=== PATIENT | female | born 1990 | race African-American/Black ===

== ENCOUNTER 2017-02-10 04:08 | Emergency (ER) | payer MEDICAID ==
[~2017-02-10 04:08] MED LIST: CLIN1CAP6 PO
[2017-02-10 04:09] VITALS: BP 157/94; PULSE 71; RESP 16; TEMP 97.6; O2SAT 100
[2017-02-10] MEDS ORDERED: SODIUM CHLOR 0.9% 1000 ML INJ 1,000 ML IV ONE ×2 (04:45→06:15)
[2017-02-10] MEDS ORDERED: ONDANSETRON HCL 4 MG/2 ML VIAL IV ONE (04:45)
[2017-02-10 05:22] LABS: AUTOMATED NEUTROPHIL # 3.3 TH/MM3 (1.8-7.7); BASOPHIL % 0.5 % (0.0-2.0); EOSINOPHIL # 0.2 TH/MM3 (0-0.4); EOSINOPHIL % 2.8 % (0.0-4.0); HEMATOCRIT 49.5 % (35.0-46.0); HEMO FLAGS DIFF FINAL; LYMPH % 42.4 % (9.0-44.0); LYMPHOCYTE # 2.8 TH/MM3 (1.0-4.8); MEAN CELL VOLUME 92.4 FL (80.0-100.0); MEAN CORPUSCULAR HEMOGLOBIN 30.7 PG (27.0-34.0); MEAN CORPUSCULAR HGB CONC 33.2 % (32.0-36.0); MONO % 4.5 % (0.0-8.0); NEUT % 49.8 % (16.0-70.0); PLATELET COUNT 254 TH/MM3 (150-450); RED BLOOD COUNT 5.36 MIL/MM3 (4.00-5.30); RED CELL DISTRIBUTION WIDTH 14.4 % (11.6-17.2); WHITE BLOOD COUNT 6.7 TH/MM3 (4.0-11.0)
--- NOTE | 2017-02-10 05:23 | PD ---
HPI Chief Complaint: GI Complaint Time Seen by Provider: 04:34 Travel History International Travel<30 days: No Contact w/Intl Traveler<30days: No Traveled to known affect area: No History of Present Illness HPI The patient is a 26 year old female who presents to the [facility] emergency department with a history of yesterday beginning to have a headache over bilateral frontal sinuses that is gradually gotten worse with time. The patient reports that the headache is a pressure sensation. She reports it has been constant. She reports that she is now experiencing nausea and vomiting. She reports that she's had nausea and vomiting 4 prior to arrival. She denies having any diarrhea. She reports that she has had problems with headaches in the past, however they were many years ago. She reports that she has had worse headaches previously. She denies any thunderclap quality to this headache. She denies having any neck pain, fevers, cough, congestion, rhinorrhea. Otherwise on review of systems, she denies any chest pain, shortness of breath, abdominal pain, urinary symptoms, or neurologic symptoms. LMP: 1 week ago her last menstrual cycle ended PFSH Past Medical History Narrative Medical The patient's past medical history is significant for headaches. Hx Anticoagulant Therapy: No Cardiovascular Problems: No Chemotherapy: No Cerebrovascular Accident: No Diabetes: No Diminished Hearing: No Headaches: Yes Respiratory: No ?: Not : 4 Para: 4 Miscarriage: 0 : 0 Past Surgical History Narrative Surgical The patient's past surgical history is reportedly none. Hysterectomy: No Social History Alcohol Use: No Tobacco Use: No Substance Use: No Allergies-Medications (Allergen,Severity, Reaction): Coded Allergies: Keflex (Verified Allergy, Severe, Hives, 02/10/17) Reported Meds & Prescriptions Reported Meds & Active Scripts Active No Active Prescriptions or Reported Medications Review of Systems Except as stated in HPI: all other systems reviewed are Neg General / Constitutional: No: Fever, Chills Eyes: No: Visual changes HENT: Positive: Headaches, No: Sore Throat, Rhinorrhea, Neck Stiffness, Neck Pain Cardiovascular: No: Chest Pain or Discomfort Respiratory: No: Shortness of Breath Gastrointestinal: Positive: Nausea, Vomiting, No: Abdominal Pain Genitourinary: No: Dysuria Musculoskeletal: No: Pain Skin: No Rash Neurologic: Positive: Headache, No: Weakness, Focal Abnormalities, Change in Mentation, Slurred Speech, Sensory Disturbance Psychiatric: No: Depression Endocrine: No: Polydipsia Hematologic/Lymphatic: No: Easy Bruising Physical Exam Narrative General: The patient is a well-developed well-nourished female in no acute distress. Head and Neck exam: Head is normocephalic atraumatic. Eyes: EOMI, pupils are equal round and reactive to light. Nose: Midline septum with pink mucous membranes Mouth: Dentition unremarkable. Moist mucus membranes. Posterior oropharynx is not erythematous. No tonsillar hypertrophy. Uvula midline. Airway patent. Neck: No palpable lymphadenopathy. No nuchal rigidity. No thyromegaly. Cardiovascular: Regular rate and rhythm without murmurs, gallops, or rubs. No pulse deficit to the extremities. Lungs: Clear to auscultation bilaterally. No wheezes, rhonchi, or rales. Abdomen: Soft, without tenderness to palpation in all 4 quadrants of the abdomen. No guarding, rebound, or rigidity. Normal bowel sounds are audible. No tenderness on palpation of McBurney's point. Negative Bran's sign. Extremities: No clubbing, cyanosis, or edema. 2+ pulses in all 4 extremities. No calf tenderness on palpation. Back: No spinous process tenderness to palpation. No costovertebral angle tenderness to palpation. Neurologic Exam: Cranial nerves 2-12 were intact on exam. Strength is 5/5 in all 4 extremities. No sensory deficits noted. Skin Exam: No rash noted. Intact skin that is warm and dry. Data Data Last Documented VS Vital Signs Date Time Temp Pulse Resp B/P Pulse Ox O2 Delivery O2 Flow Rate FiO2 02/10/17 04:31 16 02/10/17 04:09 97.6 71 157/94 100 Room Air Orders Complete Blood Count With Diff (02/10/17 04:43) Comprehensive Metabolic Panel (02/10/17 04:43) Lipase (02/10/17 04:43) Urinalysis - C+S If Indicated (02/10/17 04:43) Ct Brain W/O Iv Contrast(Rout) (02/10/17 04:43) Iv Access Insert/Monitor (02/10/17 04:43) Ecg Monitoring (02/10/17 04:43) Oximetry (02/10/17 04:43) Ed Urine Pregnancytest Poc (02/10/17 04:43) Sodium Chlor 0.9% 1000 Ml Inj (Ns 1000 M (02/10/17 04:45) Ondansetron Inj (Zofran Inj) (02/10/17 04:45) Ketorolac Inj (Toradol Inj) (02/10/17 06:15) Sodium Chlor 0.9% 1000 Ml Inj (Ns 1000 M (02/10/17 06:15) Labs Laboratory Tests Test 02/10/17 02/10/17 05:10 05:20 White Blood Count 6.7 TH/MM3 Red Blood Count 5.36 MIL/MM3 Hemoglobin 16.4 GM/DL Hematocrit 49.5 % Mean Corpuscular Volume 92.4 FL Mean Corpuscular Hemoglobin 30.7 PG Mean Corpuscular Hemoglobin 33.2 % Concent Red Cell Distribution Width 14.4 % Platelet Count 254 TH/MM3 Mean Platelet Volume 8.9 FL Neutrophils (%) (Auto) 49.8 % Lymphocytes (%) (Auto) 42.4 % Monocytes (%) (Auto) 4.5 % Eosinophils (%) (Auto) 2.8 % Basophils (%) (Auto) 0.5 % Neutrophils # (Auto) 3.3 TH/MM3 Lymphocytes # (Auto) 2.8 TH/MM3 Monocytes # (Auto) 0.3 TH/MM3 Eosinophils # (Auto) 0.2 TH/MM3 Basophils # (Auto) 0.0 TH/MM3 CBC Comment DIFF FINAL Differential Comment Sodium Level 139 MEQ/L Potassium Level 3.8 MEQ/L Chloride Level 105 MEQ/L Carbon Dioxide Level 26.8 MEQ/L Anion Gap 7 MEQ/L Blood Urea Nitrogen 7 MG/DL Creatinine 0.76 MG/DL Estimat Glomerular Filtration 110 ML/MIN Rate Random Glucose 76 MG/DL Calcium Level 9.1 MG/DL Total Bilirubin 0.4 MG/DL Aspartate Amino Transf 20 U/L (AST/SGOT) Alanine Aminotransferase 30 U/L (ALT/SGPT) Alkaline Phosphatase 71 U/L Total Protein 8.6 GM/DL Albumin 4.6 GM/DL Lipase 230 U/L Urine Color YELLOW Urine Turbidity CLEAR Urine pH 6.5 Urine Specific [place] 1.015 Urine Protein NEG mg/dL Urine Glucose (UA) NEG mg/dL Urine Ketones NEG mg/dL Urine Occult Blood NEG Urine Nitrite NEG Urine Bilirubin NEG Urine Urobilinogen LESS THAN 2.0 MG/DL Urine Leukocyte Esterase NEG Urine RBC 4 /hpf Urine WBC 1 /hpf Urine Squamous Epithelial 1 /hpf Cells Urine Mucus FEW /lpf Microscopic Urinalysis Comment CULT NOT INDICATED MDM Medical Decision Making Medical Screen Exam Complete: Yes Emergency Medical Condition: Yes Medical Record Reviewed: Yes Interpretation(s) Last Impressions Head CT 02/10/17 0443 Signed Impressions: Service Date/Time: Friday, February 10, 2017 05:42 - CONCLUSION: Normal examination for a patient of this age. No significant change has occurred. Abdirizak Robles MD Differential Diagnosis Acute sinusitis, versus tension headache, versus migraine headache, versus allergy related headache, versus cluster headache Narrative Course During the course of the patients emergency department visit, the patients history, examination, and differential diagnosis were reviewed with the patient. The patient had IV access obtained and blood work sent for analysis. The patient had a CT scan of the brain ordered. The patient was initially provided normal saline 1 L IV fluid bolus, Zofran 4 mg IV. The patients laboratory studies were reviewed and remarkable for a white count of 6.7, hemoglobin 16.4, platelets 254 with a normal differential. CMP is remarkable for a total protein of 8.6, lipase 230. Urinalysis shows 4 rbc's, no other acute abnormality. Radiology studies were reviewed and remarkable for a CT scan of the brain that shows no acute abnormality. The patient was provided Toradol 15 mg IV for pain. The patient was given a second liter of normal saline IV fluids. The patient is resting comfortably and feels better, is alert and in no distress. The patients results and examination findings were discussed with the patient. The repeat examination is unremarkable and benign. The history, exam, diagnostic testing, and current condition do not suggest any significant pathology to warrant further testing, continued ED treatment, admission, or surgical evaluation at this point. The vital signs have been stable. The patient does not have uncontrollable pain, intractable vomiting, or other significant symptoms. The patient's condition is stable and appropriate for discharge. The patient will pursue further outpatient evaluation with a primary care physician or other designated or consulting physician as indicated in the discharge instructions. The patient expressed understanding and was agreeable with this plan. Diagnosis Primary Impression: Headache Qualified Code: R51 - Acute nonintractable headache, unspecified headache type Referrals: Primary Care Physician 2 days Patient Instructions: Acute Headache (ED), General Instructions Med/Other Pt SpecificInfo: Prescription(s) given Scripts Mvmewmjoli-Mzkmtmkmhbvpb-Pcvegeaq (Fioricet)50-300-40 Mg Cap1 Cap PO Q6HR PRN ( headache) #6 CAP Ref 0 Prov:Amy Bernabe MD 02/10/17 Ondansetron Odt (Zofran Odt)4 Mg Tab4 Mg SL Q6HR PRN (Nausea/Vomiting) #7 TAB Ref 0 Prov:Amy Bernabe MD 02/10/17 Disposition: 01 DISCHARGE HOME Condition: Stable Amy Bernabe MD Feb 10, 2017 05:23
[2017-02-10 05:37] LABS: ALT (GPT) 30 U/L (10-53); ANION GAP 7 MEQ/L (5-15); AST (GOT) 20 U/L (15-37); BICARBONATE 26.8 MEQ/L (21.0-32.0); BLOOD UREA NITROGEN 7 MG/DL (7-18); CHLORIDE 105 MEQ/L (98-107); GLOMERULAR FILTRATION RATE 110 ML/MIN (>89); POTASSIUM 3.8 MEQ/L (3.5-5.1); SODIUM (NA) 139 MEQ/L (136-145)
[2017-02-10 05:39] LABS: BLOOD, URINE NEG (NEG); COMMENT (UR) CULT NOT INDICATED; CULTURE IF INDICATED CULT NOT INDICATED; GLUCOSE,URINE NEG (NEG); KETONE, URINE NEG (NEG); MUCUS URINE FEW /lpf (OCC); NITRITE,URINE NEG (NEG); PH, URINE 6.5 (5.0-8.5); SQUAMOUS EPITHELIAL CELL URINE 1 /hpf (0-5); URINE COLOR YELLOW (YELLW/STRAW)
[2017-02-10 05:39] LABS: ALKALINE PHOSPHATASE 71 U/L (45-117); TOTAL BILIRUBIN ADULT 0.4 MG/DL (0.2-1.0)
--- NOTE | 2017-02-10 05:52 | RADRPT ---
EXAM DATE/TIME: 02/10/2017 05:42 [place] COMPARISON: CT BRAIN W/O CONTRAST, September 10, 2014, 4:12. INDICATIONS : Cephalgia with vomiting. RADIATION DOSE: 37.30 CTDIvol (mGy) MEDICAL HISTORY : None SURGICAL HISTORY : None. ENCOUNTER: Initial ACUITY: 1 day PAIN SCALE: 6/10 LOCATION: cranial TECHNIQUE: Multiple contiguous axial images were obtained of the head. Using automated exposure control and adj ustment of the mA and/or kV according to patient size, radiation dose was kept as low as reasonably a chievable to obtain optimal diagnostic quality images. DICOM format image data is available electro nically for review and comparison. FINDINGS: CEREBRUM: The ventricles are normal for age. No evidence of midline shift, mass lesion, hemorrhage or acute in farction. No extra-axial fluid collections are seen. POSTERIOR FOSSA: The cerebellum and brainstem are intact. The 4th ventricle is midline. The cerebellopontine angle i s unremarkable. EXTRACRANIAL: The visualized portion of the orbits is intact. SKULL: The calvaria is intact. No evidence of skull fracture. CONCLUSION: Normal examination for a patient of this age. No significant change has occurred. Abdirizak Robles MD on February 10, 2017 at 5:50 Board Certified Radiologist. This report was verified electronically.
[2017-02-10] MEDS ORDERED: KETOROLAC TROMETHAMINE 30 MG/ML (IVP) VIAL IV PUSH ONE (06:15)
[2017-02-10] MEDS ORDERED: ZOFR4TAB3 SL (06:28)
[2017-02-10] MEDS ORDERED: BUTA1CAP PO (06:28)
[2017-02-10 07:17] VITALS: BP 136/94; TEMP 97.9
== END 2017-02-10 07:45 | disposition home or self-care (01) ==
LOC: NEPC 04:08
DX: R51 Headache (principal); R11.2 Nausea with vomiting, unspecified
CPT/HCPCS: 70450; 80053; 81001; 83690; 84703; 85025; 96374; 96375; 99285; J1885; J2405; J7030

== ENCOUNTER 2017-02-24 15:49 | Emergency (ER) | payer MEDICAID ==
[~2017-02-24] VITALS: Ht 175.3 cm; Wt 86.0 kg
[~2017-02-24 15:49] MED LIST changes: +BUTA1CAP PO; -CLIN1CAP6 PO; +ZOFR4TAB3 SL
[2017-02-24 15:50] VITALS: BP 175/87; PULSE 59; RESP 16; TEMP 98.6; O2SAT 100
[2017-02-24 17:07] LABS: BACTERIA, URINE RARE /hpf; BLOOD, URINE MOD (NEG); COMMENT (UR) CULT NOT INDICATED; CULTURE IF INDICATED CULT NOT INDICATED; GLUCOSE,URINE NEG (NEG); KETONE, URINE NEG (NEG); MUCUS URINE FEW /lpf (OCC); NITRITE,URINE NEG (NEG); PH, URINE 6.5 (5.0-8.5); SQUAMOUS EPITHELIAL CELL URINE 8 /hpf (0-5); URINE COLOR YELLOW (YELLW/STRAW)
[2017-02-25] MEDS ORDERED: METR500T10 PO (11:24)
== END 2017-02-24 18:16 | disposition left against medical advice (07) ==
LOC: NED 15:49
DX: N94.9 Unspecified condition associated with female genital organs and menstrual cycle (principal)
CPT/HCPCS: 81001; 84703; 99281

== ENCOUNTER 2017-02-25 07:56 | Emergency (ER) | payer MEDICAID ==
[2017-02-25 07:58] VITALS: BP 150/90; PULSE 54; RESP 15; TEMP 98.6; O2SAT 100
--- NOTE | 2017-02-25 09:16 | PD ---
HPI Chief Complaint: Licensing Coordinator Problem/Complaint Time Seen by Provider: 09:14 Travel History International Travel<30 days: No Contact w/Intl Traveler<30days: No Traveled to known affect area: No History of Present Illness HPI 26-year-old female presents to the emergency Department with complaints of vaginal bleeding 2 days. Reports lower abdominal cramping that started last night. Says 2 weeks ago she took a home test that was positive. She did come in yesterday and had a UA and a UPT that was negative and then left without being seen. Also reports foul-smelling vaginal discharge 2 days. Denies fever, vomiting. Denies dysuria, urgency, frequency. Allergies to Keflex. Has no established primary care provider. Her last menstrual period was January 28. Has no other medical complaints. No other modifying factors or associated signs and symptoms. PFSH Past Medical History Hx Anticoagulant Therapy: No Cardiovascular Problems: No Chemotherapy: No Cerebrovascular Accident: No Diabetes: No Diminished Hearing: No Headaches: Yes Respiratory: No : 4 Para: 4 Miscarriage: 0 : 0 Past Surgical History Hysterectomy: No Social History Alcohol Use: No Tobacco Use: No Substance Use: No Allergies-Medications (Allergen,Severity, Reaction): Coded Allergies: Keflex (Verified Allergy, Severe, Hives, 02/10/17) Reported Meds & Prescriptions Reported Meds & Active Scripts Active Metronidazole 500 Mg Tab 500 Mg PO BID 7 Days Fioricet (Ebcfbmdtcn-Ungkzfrtbtntg-Afzwvtin) 50-300-40 Mg Cap 1 Cap PO Q6HR PRN Zofran Odt (Ondansetron Odt) 4 Mg Tab 4 Mg SL Q6HR PRN Review of Systems Except as stated in HPI: all other systems reviewed are Neg Physical Exam Narrative GENERAL: Well-nourished, well-developed female patient, in no acute distress; afebrile, nontoxic-appearing SKIN: Warm and dry. HEAD: Atraumatic. Normocephalic. EYES: Pupils equal and round. No scleral icterus. No injection or drainage. ENT: Mucous membranes pink and moist. NECK: Trachea midline. CARDIOVASCULAR: Regular rate and rhythm. No murmur appreciated. RESPIRATORY: No accessory muscle use. Clear to auscultation. Breath sounds equal bilaterally. GASTROINTESTINAL: Abdomen soft, non-tender, nondistended. Bilateral pelvic region nontender to palpation. Hepatic and splenic margins not palpable. No guarding, rigidity, rebound tenderness. PELVIC: Exam done in the presence of a nurse. Speculum exam reveals nonedematous and nonerythematous cervix with foul smelling, dark red discharge. Bimanual exam reveals no palpable masses or adnexa tenderness, no uterine tenderness. No cervical motion tenderness. BACK: No CVA tenderness. MUSCULOSKELETAL: No obvious deformities. No clubbing. No cyanosis. No edema. NEUROLOGICAL: Awake and alert. No obvious cranial nerve deficits. Motor grossly within normal limits. Normal speech. PSYCHIATRIC: Appropriate mood and affect; insight and judgment normal. Data Data Last Documented VS Vital Signs Date Time Temp Pulse Resp B/P Pulse Ox O2 Delivery O2 Flow Rate FiO2 02/25/17 12:29 88 16 125/85 98 02/25/17 07:58 98.6 Orders Wet Prep Profile (02/25/17 09:16) Urinalysis - C+S If Indicated (02/25/17 09:43) Ed Urine Pregnancytest Poc (02/25/17 09:43) Gc And Chlamydia Pcr (02/25/17 12:16) Labs Laboratory Tests Test 02/25/17 02/25/17 10:10 10:20 Clue Cells (Wet Prep) PRESENT Vaginal Trichomonas (Wet Prep) NONE SEEN Vaginal Yeast (Wet Prep) NONE SEEN Urine Color YELLOW Urine Turbidity CLEAR Urine pH 7.0 Urine Specific [place] 1.019 Urine Protein TRACE mg/dL Urine Glucose (UA) NEG mg/dL Urine Ketones NEG mg/dL Urine Occult Blood LARGE Urine Nitrite NEG Urine Bilirubin NEG Urine Urobilinogen 2.0 MG/DL Urine Leukocyte Esterase NEG Urine RBC 175 /hpf Urine WBC 1 /hpf Urine Squamous Epithelial 1 /hpf Cells Urine Mucus FEW /lpf Microscopic Urinalysis Comment CULT NOT INDICATED Chlamydia trachomatis DNA NOT DETECTED (PCR) Neisseria gonorrhoeae DNA NOT DETECTED (PCR) MDM Medical Decision Making Medical Screen Exam Complete: Yes Emergency Medical Condition: Yes Medical Record Reviewed: Yes Differential Diagnosis Menstrual cycle, spontaneous miscarriage, vaginal bleeding, chlamydia, gonorrhea Narrative Course 26-year-old female with vaginal bleeding 2 days. Last menstrual was January 28. Reports positive home 2 weeks ago. Was seen yesterday and left without being seen; has negative urine test yesterday and urinalysis with no signs of infection. Patient also reports foul-smelling vaginal discharge 2 days. Urinalysis, UPT, Wet prep, chlamydia and gonorrhea ordered. 1011: Urine ordered. Pelvic exam is unremarkable other than foul Smelling, dark red vaginal bleeding. I do not feel empirical treatment for chlamydia and gonorrhea is necessary at this time. Chlamydia and gonorrhea pending. 1125: +clue cells. Flagyl prescribed for home. Instructed patient to follow- up with gynecology. Instructed patient to follow up with primary care provider. Patient verbalizes understanding and agreement with treatment plan. Patient is medically cleared and stable for discharge. Discussed reasons to return to the emergency department. Patient agrees with treatment plan. The patients vital signs are stable and the patient is stable for outpatient follow- up and treatment. Patient discharged home, stable and in no acute distress. Diagnosis Primary Impression: Vaginal bleeding Additional Impression: Bacterial vaginosis Referrals: [facility] Director Of Planning [facility] Primary Care Physician Patient Instructions: General Instructions Additional Instructions: Follow-up with primary care provider Follow-up with gynecology/[facility] now Return to the emergency department immediately with worsening of symptoms Med/Other Pt SpecificInfo: No Meds Exist/No RX given Scripts Metronidazole 500 Mg [id number] Mg PO BID 7 Days Ref 0 Prov:Magdalena Sage 02/25/17 Disposition: 01 DISCHARGE HOME Condition: Stable Madeline Gibson Feb 25, 2017 09:16
--- NOTE | 2017-02-25 11:01 | PD ---
Physical Exam Narrative I, Dr. Sage, have reviewed the advance practice practitioner's documentation and am in agreement, met with the patient face to face, made the diagnosis, and the medical decision making was done by me. *My assessment and Findings: Menstrual period vs. bacterial vaginosis vs. UTI 26yo F with no PMH here with vaginal bleeding since yesterday. LMP is 01/28/17 so pt is almost due for her normal menstrual period. Urine is negative. UA showed large blood and pt is likely on her menstrual period. No leukocyte. Wet prep showed positive clue cells, will treat for bacterial vaginosis. Pt has no abdominal pain and is well appearing. Return precautions given. Data Data Last Documented VS Vital Signs Date Time Temp Pulse Resp B/P Pulse Ox O2 Delivery O2 Flow Rate FiO2 02/25/17 07:58 98.6 54 15 150/90 100 Orders Gc And Chlamydia Pcr (02/25/17 09:16) Wet Prep Profile (02/25/17 09:16) Urinalysis - C+S If Indicated (02/25/17 09:43) Ed Urine Pregnancytest Poc (02/25/17 09:43) Labs Laboratory Tests Test 02/25/17 02/25/17 10:10 10:20 Clue Cells (Wet Prep) PRESENT Vaginal Trichomonas (Wet Prep) NONE SEEN Vaginal Yeast (Wet Prep) NONE SEEN Urine Color YELLOW Urine Turbidity CLEAR Urine pH 7.0 Urine Specific [place] 1.019 Urine Protein TRACE mg/dL Urine Glucose (UA) NEG mg/dL Urine Ketones NEG mg/dL Urine Occult Blood LARGE Urine Nitrite NEG Urine Bilirubin NEG Urine Urobilinogen 2.0 MG/DL Urine Leukocyte Esterase NEG Urine RBC 175 /hpf Urine WBC 1 /hpf Urine Squamous Epithelial 1 /hpf Cells Urine Mucus FEW /lpf Microscopic Urinalysis Comment CULT NOT INDICATED MDM Supervised Visit with DAV: Yes Diagnosis Primary Impression: Bacterial vaginosis Referrals: [facility] Eligibility Counselor [facility] Physician Patient Instructions: General Instructions Departure Forms: Tests/Procedures Additional Instruction: Follow-up with primary care provider Follow-up with gynecology/[facility] now Return to the emergency department immediately with worsening of symptoms Med/Other Pt SpecificInfo: Prescription(s) given Scripts Metronidazole 500 Mg [id number] Mg PO BID 7 Days Ref 0 Prov:Magdalena Sage DO 02/25/17 Disposition: 01 DISCHARGE HOME Condition: Stable Magdalena Sage DO Feb 25, 2017 11:01
[2017-02-25 11:19] LABS: BLOOD, URINE LARGE (NEG); COMMENT (UR) CULT NOT INDICATED; CULTURE IF INDICATED CULT NOT INDICATED; GLUCOSE,URINE NEG (NEG); KETONE, URINE NEG (NEG); MUCUS URINE FEW /lpf (OCC); NITRITE,URINE NEG (NEG); SQUAMOUS EPITHELIAL CELL URINE 1 /hpf (0-5); URINE COLOR YELLOW (YELLW/STRAW)
[2017-02-25] MEDS ORDERED: METR500T10 PO (11:24)
[2017-02-25 12:29] VITALS: BP 125/85
[2017-02-25 19:49] LABS: CHLAMYDIA PCR NOT DETECTED (NOT DETECT); NEISSERIA PCR NOT DETECTED (NOT DETECT)
== END 2017-02-25 12:30 | disposition home or self-care (01) ==
LOC: NEPD 07:56
DX: N76.0 Acute vaginitis (principal)
CPT/HCPCS: 81001; 84703; 87210; 87491; 87591; 99283